=== PATIENT | male | born 1995 | race Caucasian/White ===

== ENCOUNTER 2020-09-10 12:05 | Observation (INO) ==
[2020-09-10] MEDS ORDERED: NS 0.9% 1000 ml BAG 1,000 ML IV ONE (12:20)
[2020-09-10] MEDS ORDERED: Dexamethasone IV 4 MG/ML 5 ML VIAL (20 MG) IVPB ONE (12:30)
[2020-09-10] MEDS ORDERED: Clindamycin 600 MG/D5W BAG 600 MG/50 ML BAG IV ONE (12:30)
[2020-09-10] MEDS ORDERED: cefTRIAXone 2 GM ADDV.VIAL 2 GM in NS 0.9% 100 ml BAG 100 ML IVPB ONE (12:30)
[2020-09-10] MEDS ORDERED: cefTRIAXone 2 GM ADDV.VIAL ONE (12:38)
[2020-09-10 13:19] LABS: ABS Lymphocytes 0.6 10^3/ul (1.0-4.8); ABS Monocytes 1.3 10^3/ul (0-0.8); ABS Neutrophils 13.5 10^3/ul (1.5-7.7); Eosinophil % 0.2 %; Hematocrit 48 % (42-52); Hemoglobin 16.4 g/dL (14.0-18.0); Lymphocyte % 4.2 %; Mean Corpuscular HGB Conc 34 g/dL (31-36); Mean Corpuscular Hemoglobin 32 pg (27-31); Mean Corpuscular Volume 92 fL (80-94); Mean Platelet Volume 8.1 fL (7.4-10.4); Nucleated Red Blood Cells % 0.2; Platelet Count 231 10^3/uL (150-450); Red Blood Count 5.19 10^6 /uL (4.18-5.48); Red Cell Distribution Width 13 % (10-15); White Blood Count 15.5 10^3/uL (3.5-10.8)
[2020-09-10 13:37] LABS: C Reactive Protein 109.64 mg/L (<8.01); Calcium 9.6 mg/dL (8.6-10.3); EGFR African American 108.6 (>60); EGFR Non-African American 89.7 (>60); Potassium 4.2 mmol/L (3.5-5.0)
[2020-09-10] MEDS ORDERED: Iohexol 300 (CONTRAST) 10 ML SDV IV ONE (13:58)
[2020-09-10] MEDS ORDERED: Dexamethasone IV 4 MG/ML 5 ML VIAL (20 MG) ONE (14:00)
[2020-09-10] MEDS ORDERED: Ondansetron 4 mg VIAL 2 MG/ML 2 ml VIAL IV PRN (15:38)
[2020-09-10] MEDS ORDERED: Phenol 1.4% Throat Spray 177 ml BTL MT PRN (15:42)
[2020-09-10] MEDS ORDERED: Benzocaine/Menthol LOZ MT PRN (15:42)
[2020-09-10] MEDS ORDERED: NS 0.9% 1000 ml BAG 1,000 ML IV SCH (15:45)
[2020-09-10] MEDS: Acetaminoph/Cod 120/12 mg LIQ 5 ML UDC PO PRN (18:30)
[2020-09-10] MEDS: Clindamycin 900 MG/D5W BAG 900 MG/50 ML BAG IVPB SCH (21:58)
[2020-09-11] MEDS: Acetaminoph/Cod 120/12 mg LIQ 5 ML UDC PO PRN (06:00)
[2020-09-11] MEDS: Clindamycin 900 MG/D5W BAG 900 MG/50 ML BAG IVPB SCH (06:01)
[2020-09-11 06:18] LABS: ABS Lymphocytes 0.5 10^3/ul (1.0-4.8); ABS Monocytes 0.5 10^3/ul (0-0.8); ABS Neutrophils 14.1 10^3/ul (1.5-7.7); Hematocrit 46 % (42-52); Hemoglobin 15.6 g/dL (14.0-18.0); Lymphocyte % 3.5 %; Mean Corpuscular HGB Conc 34 g/dL (31-36); Mean Corpuscular Hemoglobin 32 pg (27-31); Mean Corpuscular Volume 93 fL (80-94); Mean Platelet Volume 8.2 fL (7.4-10.4); Platelet Count 246 10^3/uL (150-450); Red Blood Count 4.92 10^6 /uL (4.18-5.48); Red Cell Distribution Width 13 % (10-15); White Blood Count 15.2 10^3/uL (3.5-10.8)
[2020-09-11 06:39] LABS: Calcium 9.2 mg/dL (8.6-10.3); EGFR African American 137.7 (>60); EGFR Non-African American 113.8 (>60); Potassium 4.1 mmol/L (3.5-5.0)
[2020-09-11 11:58] LABS: HIV 4th Generation Nonreactive (Nonreactive)
[2020-09-11 17:15] VITALS: BP 130/67
[2020-09-14 00:27] LABS: C trachomatis Source URINE; N. gonorrhoeae Source URINE
== END 2020-09-11 19:00 | disposition home or self-care (01) ==
LOC: MEDTELE 12:05 → ED 12:05
PROVIDERS: ADMIT Hospitalist; ATTEND Internal Medicine